=== PATIENT | male | born 1965 | race Caucasian/White ===

== ENCOUNTER 2021-05-01 16:02 | Emergency (ER) | payer OTHER ==
[~2021-05-01] VITALS: Ht 177.8 cm; Wt 108.4 kg
[~2021-05-01 16:02] MED LIST changes: -ONDA4ODT MM; -OXAYDO5 M1 PO
[2021-05-01 16:50] LABS: BASOPHILS ABSOLUTE AUTO 0.05 K/mm3 (0.00-0.23); BASOPHILS PERCENT AUTO 1 % (0-2); EOSINOPHILS ABSOLUTE AUTO 0.09 K/mm3 (0.00-0.68); EOSINOPHILS PERCENT AUTO 2 % (0-6); Hematocrit 40.1 % (37.0-53.0); Hemoglobin 13.4 g/dL (13.5-17.5); IMMATURE GRAN ABSOLUTE AUTO 0.03 K/mm3 (0.00-0.10); IMMATURE GRAN PERCENT AUTO 1 % (0-1); LYMPHOCYTES ABSOLUTE AUTO 1.01 K/mm3 (0.84-5.20); LYMPHOCYTES PERCENT AUTO 17 % (21-46); MONOCYTES ABSOLUTE AUTO 0.38 K/mm3 (0.16-1.47); MONOCYTES PERCENT AUTO 6 % (4-13); Mean Corpuscular HGB 28.3 pg (26.0-34.0); Mean Corpuscular HGB Conc 33.4 g/dL (31.5-36.5); Mean Corpuscular Volume 85 fL (80-100); NEUTROPHILS ABSOLUTE AUTO 4.47 K/mm3 (1.96-9.15); NEUTROPHILS PERCENT AUTO 74 % (41-73); Platelet Count 216 K/mm3 (150-400); RDW Coefficient Variation 13.2 % (11.7-14.2); RDW Standard Deviation 40.8 fL (35.1-46.3); Red Blood Cell Count 4.73 M/mm3 (4.30-5.90); White Blood Cell Count 6.03 K/mm3 (4.00-11.30)
[2021-05-01 17:14] LABS: Albumin, Blood 3.6 g/dL (3.4-5.0); Albumin/Globulin Ratio 1.1 (0.8-1.8); Bilirubin, Total 0.7 mg/dL (0.1-1.0); Bun/Creatinine Ratio 15.8 (12.0-20.0); Calcium, Blood 8.6 mg/dL (8.5-10.1); Creatinine, Blood 1.33 mg/dL (0.60-1.20); Globulin, Blood 3.3 g/dL (2.2-4.0); Potassium, Blood 3.7 mmol/L (3.5-5.5); Total Protein, Blood 6.9 g/dL (6.4-8.2)
[2021-05-01 18:05] LABS: Source, Urine Clean Catch
[2021-05-01 18:21] LABS: Bilirubin, Urine Neg (Neg); Blood, Urine 5+ (Neg); Glucose Qualitative, Urine Neg (Neg); Ketones, Urine 1+ (Neg); Leukocyte Esterase, Urine 1+ (Neg); Nitrite, Urine Neg (Neg); Protein, Urine 4+ (Neg); Urobilinogen, Urine NORM (Normal)
[2021-05-01 18:26] LABS: Appearance, Urine Cloudy (Clear); Color, Urine Red (P-Yellow)
[2021-05-01 18:27] LABS: Amorphous Light (0-Heavy); Bacteria Few /hpf; Red Blood Cells, Urine TNTC /hpf (0-2); Squamous Epithelial Cells Rare /hpf (Few)
[2021-05-01 23:30] LABS: Hematocrit 39.1 % (37.0-53.0); Hemoglobin 13.3 g/dL (13.5-17.5); Mean Corpuscular HGB 28.6 pg (26.0-34.0); Mean Corpuscular Volume 84 fL (80-100); Platelet Count 200 K/mm3 (150-400); RDW Coefficient Variation 13.4 % (11.7-14.2); RDW Standard Deviation 41.1 fL (35.1-46.3); Red Blood Cell Count 4.65 M/mm3 (4.30-5.90); White Blood Cell Count 6.63 K/mm3 (4.00-11.30)
[2021-05-02] MEDS ORDERED: OXAYDO5 M1 PO (02:16)
[2021-05-02] MEDS ORDERED: ONDA4ODT MM (02:16)
[2021-05-02 08:01] LABS: BASOPHILS ABSOLUTE AUTO 0.02 K/mm3 (0.00-0.23); BASOPHILS PERCENT AUTO 0 % (0-2); EOSINOPHILS ABSOLUTE AUTO 0.03 K/mm3 (0.00-0.68); EOSINOPHILS PERCENT AUTO 1 % (0-6); Hematocrit 36.9 % (37.0-53.0); Hemoglobin 11.7 g/dL (13.5-17.5); IMMATURE GRAN ABSOLUTE AUTO 0.02 K/mm3 (0.00-0.10); IMMATURE GRAN PERCENT AUTO 0 % (0-1); LYMPHOCYTES ABSOLUTE AUTO 0.88 K/mm3 (0.84-5.20); LYMPHOCYTES PERCENT AUTO 13 % (21-46); MONOCYTES ABSOLUTE AUTO 0.38 K/mm3 (0.16-1.47); MONOCYTES PERCENT AUTO 6 % (4-13); Mean Corpuscular HGB 27.5 pg (26.0-34.0); Mean Corpuscular HGB Conc 31.7 g/dL (31.5-36.5); Mean Corpuscular Volume 87 fL (80-100); Mean Platelet Volume 10.7 fL (9.1-12.4); NEUTROPHILS PERCENT AUTO 80 % (41-73); Platelet Count 167 K/mm3 (150-400); RDW Coefficient Variation 13.6 % (11.7-14.2); RDW Standard Deviation 41.9 fL (35.1-46.3); Red Blood Cell Count 4.26 M/mm3 (4.30-5.90); White Blood Cell Count 6.63 K/mm3 (4.00-11.30)
[2021-05-02 09:22] LABS: Influenza A, PCR NEGATIVE (NEGATIVE); Influenza B, PCR NEGATIVE (NEGATIVE); Resp Syncytial Virus, PCR NEGATIVE (NEGATIVE); SARS-Cov-2 (COVID-19) PCR, MMC NEGATIVE (NEGATIVE)
== END 2021-05-02 13:24 | disposition home or self-care (01) ==
LOC: ER 16:02
PROVIDERS: Emergency Medicine; Physician Assistant; Student in an Organized Health Care Education/Training Program
DX: N39.0 Urinary tract infection, site not specified (principal); R31.0 Gross hematuria; R33.9 Retention of urine, unspecified; N28.89 Other specified disorders of kidney and ureter; E27.9 Disorder of adrenal gland, unspecified; R91.1 Solitary pulmonary nodule
CPT/HCPCS: 0241U; 36415; 51700; 51702; 51798; 74177; 80053; 81001; 85025; 85027; 86850; 86900; 86901; 87086; 96374; 96376; 99284-25; A9270; J2270; Q9967

== ENCOUNTER → 2021-05-01 | Outpatient (CLI) | payer OTHER ==
[~2021-05-01] MED LIST: ONDA4ODT MM; OXAYDO5 M1 PO; OXYACE5T PO
== END | disposition home or self-care (01) ==
LOC: LAB SHORT 11:15
DX: R31.9 Hematuria, unspecified (principal)
CPT/HCPCS: 87086

== ENCOUNTER → 2021-05-17 | Outpatient (CLI) | payer OTHER ==
[~2021-05-17] MED LIST changes: +ONDA4ODT MM; +OXAYDO5 M1 PO
[2021-05-17 11:15] LABS: Source, Urine Clean Catch
[2021-05-17 12:50] LABS: Appearance, Urine Clear (Clear); Bilirubin, Urine Neg (Neg); Blood, Urine 5+ (Neg); Color, Urine Yellow (P-Yellow); Glucose Qualitative, Urine Neg (Neg); Ketones, Urine Neg (Neg); Leukocyte Esterase, Urine Neg (Neg); Nitrite, Urine Neg (Neg); Protein, Urine 1+ (Neg); Urobilinogen, Urine NORM (Normal)
[2021-05-17 12:58] LABS: Bacteria Few /hpf; Squamous Epithelial Cells Few /hpf (Few); White Blood Cells, Urine 0-2 /hpf (0-5)
[2021-05-17 12:59] LABS: Mucus Light (0-Heavy)
== END | disposition home or self-care (01) ==
LOC: LAB 11:14 → LAB SHORT 11:14
PROVIDERS: Urology
DX: N39.0 Urinary tract infection, site not specified (principal)
CPT/HCPCS: 81001; 87086

== ENCOUNTER 2021-06-17 11:24 | Inpatient (IN) | payer OTHER ==
[~2021-06-17] VITALS: Ht 177.8 cm; Wt 100.8 kg
[2021-06-17 12:07] LABS: BASOPHILS ABSOLUTE AUTO 0.04 K/mm3 (0.00-0.23); BASOPHILS PERCENT AUTO 1 % (0-2); EOSINOPHILS ABSOLUTE AUTO 0.02 K/mm3 (0.00-0.68); EOSINOPHILS PERCENT AUTO 0 % (0-6); Hematocrit 34.1 % (37.0-53.0); Hemoglobin 10.9 g/dL (13.5-17.5); IMMATURE GRAN ABSOLUTE AUTO 0.05 K/mm3 (0.00-0.10); IMMATURE GRAN PERCENT AUTO 1 % (0-1); LYMPHOCYTES ABSOLUTE AUTO 1.21 K/mm3 (0.84-5.20); LYMPHOCYTES PERCENT AUTO 14 % (21-46); MONOCYTES ABSOLUTE AUTO 0.57 K/mm3 (0.16-1.47); MONOCYTES PERCENT AUTO 7 % (4-13); Mean Corpuscular HGB 26.3 pg (26.0-34.0); Mean Corpuscular Volume 82 fL (80-100); Mean Platelet Volume 10.6 fL (9.1-12.4); NEUTROPHILS ABSOLUTE AUTO 6.51 K/mm3 (1.96-9.15); NEUTROPHILS PERCENT AUTO 78 % (41-73); Platelet Count 260 K/mm3 (150-400); RDW Coefficient Variation 14.2 % (11.7-14.2); RDW Standard Deviation 41.9 fL (35.1-46.3); Red Blood Cell Count 4.15 M/mm3 (4.30-5.90)
[2021-06-17 12:33] LABS: Albumin, Blood 2.7 g/dL (3.4-5.0); Albumin/Globulin Ratio 0.6 (0.8-1.8); Bilirubin, Total 1.6 mg/dL (0.1-1.0); Calcium, Blood 8.7 mg/dL (8.5-10.1); Creatinine, Blood 1.31 mg/dL (0.60-1.20); Globulin, Blood 4.2 g/dL (2.2-4.0); Potassium, Blood 3.6 mmol/L (3.5-5.5); Total Protein, Blood 6.9 g/dL (6.4-8.2)
[2021-06-17] MEDS ORDERED: INLYTA5 MG PO (12:34)
[2021-06-17] MEDS ORDERED: AMLODIPINE BESY10 MG PO (12:34)
[2021-06-17] MEDS ORDERED: Ondansetron Odt8 MG SL (12:35)
[2021-06-17 12:50] LABS: Base Excess Venous 3.2 mmol/L; Bicarbonate Venous 26.5 mmol/L (24.0-30.0); PO2 Venous 42.4 mmHg (38-42); pH Blood Venous 7.42 (7.34-7.37)
[2021-06-17 13:00] LABS: International Normalized Ratio 1.1; Prothrombin Time Results 11.5 Sec (9.7-11.5)
[2021-06-17 14:55] LABS: Influenza A, PCR NEGATIVE (NEGATIVE); Influenza B, PCR NEGATIVE (NEGATIVE); Resp Syncytial Virus, PCR NEGATIVE (NEGATIVE); SARS-Cov-2 (COVID-19) PCR, MMC NEGATIVE (NEGATIVE)
[2021-06-17] MEDS ORDERED: BENZ100A PO (16:59)
[2021-06-17] MEDS ORDERED: KEYTRUDA100 MG/41 IV (17:01)
--- NOTE | 2021-06-17 17:48 | NUR ---
THIS REGIONAL MARKETING DIRECTOR HAS REVIEWED ASSESSMENTS AND NOTES BY DANIE COLE AND AGREE WITH THEM.
--- NOTE | 2021-06-17 18:09 | NUR ---
SHIFT SUMMARY PT ARRIVED TO MED FLOOR. PT HACKING UP THINNING BLOODY SPUTUM. PT REPORTS NO PAIN BUT STATES THROAT IS BECOMING SORE. PT ABLE TO AMBULATE TO RESTROOM IF NEEDED. PT USING BEDSIDE URINAL NEEDED. OF PT AT BEDSIDE. PT IN BED WITH CALL LIGHT BY SIDE.
--- NOTE | 2021-06-18 04:48 | NUR ---
SHIFT SUMMARY: PATIENT CONTINUES TO BE HYPERTENSIVE BUT ASYMPTOMATIC. LOPRESSOR WAS GIVEN AT HS WITH LITTLE EFFECT. COUGH WITH BLOOD TINGED SPUTUM IS PERSISTANT. COUGH SYRUP WAS GIVEN PER APR AND DR GRAVES WAS NOTIFIED . ORDERS FOR TESSELON PEARLS 200MG TID WAS OBTAINED AND GIVEN WITH FAIR EFFECT. PATIENT HAD A 5 BEAT RUN OF PVC'S VSS, NO CHANGES ON TELI AND NO REPORTS OF CHEST PAIN. TELI REMIANS IN PLACE.
[2021-06-18 05:07] LABS: BASOPHILS ABSOLUTE AUTO 0.05 K/mm3 (0.00-0.23); BASOPHILS PERCENT AUTO 1 % (0-2); EOSINOPHILS ABSOLUTE AUTO 0.04 K/mm3 (0.00-0.68); EOSINOPHILS PERCENT AUTO 1 % (0-6); Hematocrit 35.1 % (37.0-53.0); IMMATURE GRAN ABSOLUTE AUTO 0.04 K/mm3 (0.00-0.10); IMMATURE GRAN PERCENT AUTO 1 % (0-1); LYMPHOCYTES ABSOLUTE AUTO 1.05 K/mm3 (0.84-5.20); LYMPHOCYTES PERCENT AUTO 14 % (21-46); MONOCYTES ABSOLUTE AUTO 0.59 K/mm3 (0.16-1.47); MONOCYTES PERCENT AUTO 8 % (4-13); Mean Corpuscular HGB 25.9 pg (26.0-34.0); Mean Corpuscular HGB Conc 31.3 g/dL (31.5-36.5); Mean Corpuscular Volume 83 fL (80-100); Mean Platelet Volume 10.4 fL (9.1-12.4); NEUTROPHILS ABSOLUTE AUTO 6.01 K/mm3 (1.96-9.15); NEUTROPHILS PERCENT AUTO 77 % (41-73); Platelet Count 271 K/mm3 (150-400); RDW Coefficient Variation 14.1 % (11.7-14.2); RDW Standard Deviation 42.5 fL (35.1-46.3); Red Blood Cell Count 4.25 M/mm3 (4.30-5.90); White Blood Cell Count 7.78 K/mm3 (4.00-11.30)
[2021-06-18 05:51] LABS: Bun/Creatinine Ratio 16.4 (12.0-20.0); Calcium, Blood 8.5 mg/dL (8.5-10.1); Creatinine, Blood 1.46 mg/dL (0.60-1.20); Potassium, Blood 3.6 mmol/L (3.5-5.5)
--- NOTE | 2021-06-18 17:16 | NUR ---
SHIFT SUMMARY PT AOX4. PT WAS ADMITTED WITH RESPIRATORY FAILURE SECONDARY TO STAGE IV RENAL CANCER. PT REQUIRES ASSISTANCE TO THE COMMODE. PT PREFERS TO SIT UP BECAUSE IT HELPS WITH BREATHING. PT IS USING A HIGH FLOW HUMIDIFIED, 6L. PT REPORTED TO HAVE BEEN COUGHIN UP BLOODY SPUTUM, NONE NOTED THIS SHIFT. PT HAD FAMILY VISIT THROUGHOUT THE DAY. PT HAS BEEN IN A PLEASANT MOOD. PT FOLLOWS COMMANDS. PT TAKES MEDS WHOLE WITH WATER. PT HAD A 6 BEAT RUN OF VTACH THIS SHIFT AT 17:22. PT WAS ASYMPTOMATIC. PT SKIN CDI. THE PLAN IS FOR HIM TO GO HOME WITH HIS GF WHO IS CURRENTLY PRESENT WITH HIM IN THE ROOM NOW. WILL CONTINUE TO MONITOR AND ASSESS UNTIL NOC SHIFT ARRIVES.
--- NOTE | 2021-06-18 17:58 | NUR ---
I HAVE READ AND REVIEWED THE AUTOMOBILE SALESMAN DOCUMENTATION AND AM IN AGGREEMENT WITH HER CHARTING.
--- NOTE | 2021-06-19 04:45 | NUR ---
SHIFT SUMMARY: PATIENT HAS SLEPT WELL THIS SHIFT. COUGH HAS IMPROVED WITH ONE DOSE OF COUGH SYRUP. VSS AND NO REPORTS OF PAIN. MAINTAINS SATS 92-93 ON 6L HIGH FLOW 02. NO ACUTE CHANGES.
--- NOTE | 2021-06-19 18:11 | NUR ---
SHIFT SUMMARY PT HAS BEEN PLEASANT ALL DAY, HE HAS BEEN RECIEVING MANY VISITORS. HIS BREATHING EFFORT HAS DECREASED AND HE SAID HE SLEPT WELL LAST NIGHT. HE TOOK A SHOWER WITH THE ROLLING SHOWER CHAIR TODAY. HE HAS ALSO BENE GIVEN A CUP FOR A SPUTUM COLLECTION, HE WAS TOLD TO LET US KNOW WHEN HE CAN PROVIDE ONE. THE PT IS AOX4. HIS APPETITE HAS IMPROVED, EATING MOST OF HIS MEALS TODAY. HE DENIED ANY PAIN TODAY AND DID NOT REQUEST ANY PAIN MEDICATIONS. WILL CONTINUE TO MONITOR AND ASSESS UNTIL NOC SHIFT ARRIVES.
--- NOTE | 2021-06-19 18:30 | NUR ---
THIS RN REVIEWED THE DOCUMENTTON BY ASCENCION ALSTON. I AM IN AGREEMENT WITH HER CHARTING.
--- NOTE | 2021-06-20 03:47 | NUR ---
SUMMARY: PT A/OX4, CALLS APPROPRIATELY TO SPECIFY NEEDS AND IS PLEASANT AND COOPERATIVE W/CARE. HE REMAINS ON 6L HF O2 BUT REPORTS FEELING FAR LESS SOB W/EXERTION AND NONE AT REST. HACKING COUGH PERSISTS, SPUTUM SPECIMEN OBTAINED AND SENT, AWAITING RESULTS AND COUGH MEDICINE RECIEVED PRN FOR GOOD EFFECT. HE'S NSR W/PAC'S AND PVC'S ON TELEMETRY AT 90'S BPM. NO ACUTE CHANGES, VSS AND AFEBRILE. WCTM AND REPORT TO DAY RN.
[2021-06-20 05:54] LABS: Bun/Creatinine Ratio 20.6 (12.0-20.0); Calcium, Blood 8.6 mg/dL (8.5-10.1); Creatinine, Blood 1.31 mg/dL (0.60-1.20); Potassium, Blood 3.1 mmol/L (3.5-5.5)
--- NOTE | 2021-06-20 08:46 | NUR ---
DR BLACK NOTIFIED OF RUN OF V-TACH X2 THIS SHIFT. NO NEW ORDERS AT THIS TIME.
--- NOTE | 2021-06-20 17:17 | NUR ---
SHIFT SUMMARY PT AXO, PLEASANT AND COOPERATIVE WITH CARE. COMPLAINS OF SOB WITH EXERTION AND WITH TALKING, THOUGH IMPROVING. HACKING PRODUCTIVE COUGH ONLY OBSERVED WHEN PT IS ENGAGED IN CONVERSATION. 96-98% ON 6L VIA HFNC. PT DENIES PAIN AND N/V. PT HAS HAD 2 EPISODES OF RUNS OF V-TACH, DR BLACK NOTIFIED, NO NEW ORDERS . UP TO CHAIR INDEPENDENTLY, ENCOURAGED TO CALL WHEN OOB. BED IN LOW POSITION, CALL LIGHT WITHIN REACH. PT INQUIRED ABOUT HIS HOME MEDICATION IN[place]TA, THIS NURSE CALLED DR BLACK AND GOT IT REORDERED. MED VERIFIED BY PHARMACY AND IS CURRENTLY LOCKED IN DRAWER.
[2021-06-21 05:37] LABS: Hematocrit 35.4 % (37.0-53.0); Mean Corpuscular HGB 25.5 pg (26.0-34.0); Mean Corpuscular HGB Conc 31.1 g/dL (31.5-36.5); Mean Corpuscular Volume 82 fL (80-100); Mean Platelet Volume 10.5 fL (9.1-12.4); Platelet Count 258 K/mm3 (150-400); RDW Coefficient Variation 13.9 % (11.7-14.2); RDW Standard Deviation 41.2 fL (35.1-46.3); Red Blood Cell Count 4.31 M/mm3 (4.30-5.90); White Blood Cell Count 6.93 K/mm3 (4.00-11.30)
--- NOTE | 2021-06-21 05:50 | NUR ---
SHIFT SUMMARY NOC: ABLE TO TITRATE O2 FROM 6L TO 4L DURING NIGHT. PT SATTING 95-97% NO RESPIRATORY DISTRESS NOTED DURING SHIFT. NO COMPLAINTS OF SOB OR PAIN.
[2021-06-21 06:03] LABS: Albumin, Blood 2.4 g/dL (3.4-5.0); Albumin/Globulin Ratio 0.6 (0.8-1.8); Bilirubin, Total 0.7 mg/dL (0.1-1.0); Calcium, Blood 8.6 mg/dL (8.5-10.1); Creatinine, Blood 1.33 mg/dL (0.60-1.20); Globulin, Blood 4.2 g/dL (2.2-4.0); Potassium, Blood 3.7 mmol/L (3.5-5.5); Total Protein, Blood 6.6 g/dL (6.4-8.2)
--- NOTE | 2021-06-21 06:20 | NUR ---
TELE RHYTHM PER TELE CREDIT CARD CLERK AROUND 0600 PT HAD 7 B RUN V. TACH & THEN CONVERTED TO SINUS TACH HR 100. PT ASYMPTOMATIC, RESTING IN BED, DENIES ANY DISCOMFORT. SUPERVISOR COOK HOUSEDANIE Main INFORMED.
--- NOTE | 2021-06-21 12:08 | NUR ---
GIRLFRIEND AT BEDSIDE, COOPERATIVE TO CARE, WAITING FOR THE GEAR CODING MACHINE OPERATOR DR ALCOCER TO ROUND, INDEPENDANT IN ROOM, REFUSED LAXATIVE AND STOOL SOGTNER TODAY
[2021-06-21] MEDS ORDERED: METO25 PO (16:53)
[2021-06-21] MEDS ORDERED: CEFD300 PO (16:53)
[2021-06-21] MEDS ORDERED: ALBU90OI INH (16:53)
[2021-06-21] MEDS ORDERED: FURO20 PO (16:54)
[2021-06-21] MEDS ORDERED: SPIR25 PO (16:54)
== END 2021-06-21 18:21 | disposition home or self-care (01) | DRG 193 ==
LOC: ER 11:24 → MEDS 16:30
PROVIDERS: Internal Medicine; Physician Assistant; ADMIT Internal Medicine
DX: J18.9 Pneumonia, unspecified organism (principal); I50.21 Acute systolic (congestive) heart failure; J96.01 Acute respiratory failure with hypoxia; Z66 Do not resuscitate; I13.0 Hypertensive heart and chronic kidney disease with heart failure and stage 1 through stage 4 chronic kidney disease, or unspecified chronic kidney disease; C64.2 Malignant neoplasm of left kidney, except renal pelvis; C78.02 Secondary malignant neoplasm of left lung; C78.01 Secondary malignant neoplasm of right lung; Z20.822 Contact with and (suspected) exposure to COVID-19; D63.0 Anemia in neoplastic disease; E87.6 Hypokalemia; Z79.899 Other long term (current) drug therapy
CPT/HCPCS: 0241U; 36415; 71260; 80048; 80053; 82803; 83605; 83735; 83880; 84484; 85025; 85027; 85610; 85730; 87040; 87070; 87205; 92610; 93005; 93010; 93306; 94640; 94664; 94760; 96361; 96365; 96366; 96375; 99285-25; A9270; C9113; J0295; J0456; J0696; J1940; J7030; J7050; J7060; Q9967

== ENCOUNTER 2021-07-22 09:40 | Emergency (ER) | payer OTHER ==
[~2021-07-22] VITALS: Ht 177.8 cm; Wt 93.0 kg
[~2021-07-22 09:40] MED LIST changes: +ALBU90OI INH; +AMLODIPINE BESY10 MG PO; +BENZ100A PO; +CEFD300 PO; +FURO20 PO; +INLYTA5 MG PO; +KEYTRUDA100 MG/41 IV; +METO25 PO; +Ondansetron Odt8 MG SL; +SPIR25 PO
[2021-07-22 11:19] LABS: Albumin, Blood 3.3 g/dL (3.4-5.0); Albumin/Globulin Ratio 0.8 (0.8-1.8); Bilirubin, Total 1.9 mg/dL (0.1-1.0); Bun/Creatinine Ratio 12.4 (12.0-20.0); Calcium, Blood 9.6 mg/dL (8.5-10.1); Creatinine, Blood 1.61 mg/dL (0.60-1.20); Globulin, Blood 3.9 g/dL (2.2-4.0); Potassium, Blood 4.2 mmol/L (3.5-5.5); Total Protein, Blood 7.2 g/dL (6.4-8.2)
[2021-07-22 12:07] LABS: Influenza A, PCR NEGATIVE (NEGATIVE); Influenza B, PCR NEGATIVE (NEGATIVE); Resp Syncytial Virus, PCR NEGATIVE (NEGATIVE); SARS-Cov-2 (COVID-19) PCR, MMC NEGATIVE (NEGATIVE)
[2021-07-22 12:29] LABS: MONOCYTES ABSOLUTE AUTO 0.54 K/mm3 (0.16-1.47); Mean Corpuscular HGB 25.3 pg (26.0-34.0); NRBC ABSOLUTE 0.02 K/mm3 (0.00-0.02); NRBC Auto 0.2 /100 WBC (0.0-0.2)
[2021-07-22 12:38] LABS: BASOPHILS ABSOLUTE AUTO 0.07 K/mm3 (0.00-0.23); BASOPHILS PERCENT AUTO 1 % (0-2); EOSINOPHILS ABSOLUTE AUTO 0.06 K/mm3 (0.00-0.68); EOSINOPHILS PERCENT AUTO 1 % (0-6); Hematocrit 38.7 % (37.0-53.0); Hemoglobin 12.2 g/dL (13.5-17.5); IMMATURE GRAN ABSOLUTE AUTO 0.05 K/mm3 (0.00-0.10); IMMATURE GRAN PERCENT AUTO 1 % (0-1); LYMPHOCYTES ABSOLUTE AUTO 1.37 K/mm3 (0.84-5.20); LYMPHOCYTES PERCENT AUTO 16 % (21-46); MONOCYTES PERCENT AUTO 6 % (4-13); Mean Corpuscular HGB Conc 31.5 g/dL (31.5-36.5); Mean Corpuscular Volume 80 fL (80-100); NEUTROPHILS ABSOLUTE AUTO 6.59 K/mm3 (1.96-9.15); NEUTROPHILS PERCENT AUTO 76 % (41-73); RDW Coefficient Variation 15.6 % (11.7-14.2); Red Blood Cell Count 4.82 M/mm3 (4.30-5.90); White Blood Cell Count 8.68 K/mm3 (4.00-11.30)
[2021-07-22 13:21] LABS: Platelet Count 198 K/mm3 (150-400)
[2021-07-22] MEDS ORDERED: AMOCLA875 PO (13:58)
[2021-07-22] MEDS ORDERED: LASIX20 M2 PO (13:58)
[2021-07-22] MEDS ORDERED: POTCHL20ER PO (13:58)
== END 2021-07-22 14:25 | disposition home or self-care (01) ==
LOC: ER 09:40
PROVIDERS: Emergency Medicine
DX: I13.0 Hypertensive heart and chronic kidney disease with heart failure and stage 1 through stage 4 chronic kidney disease, or unspecified chronic kidney disease (principal); I50.9 Heart failure, unspecified; J18.9 Pneumonia, unspecified organism; N18.9 Chronic kidney disease, unspecified; Z20.822 Contact with and (suspected) exposure to COVID-19
CPT/HCPCS: 0241U; 36415; 71046; 80053; 83880; 84484; 85025; 93005; 93010; A9270; J1940

== ENCOUNTER 2021-07-25 21:43 | Inpatient (IN) | payer OTHER ==
[~2021-07-25] VITALS: Ht 177.8 cm; Wt 85.7 kg
[~2021-07-25 21:43] MED LIST changes: +AMOCLA875 PO; +LASIX20 M2 PO; +POTCHL20ER PO
[2021-07-25 22:53] LABS: BASOPHILS ABSOLUTE AUTO 0.08 K/mm3 (0.00-0.23); BASOPHILS PERCENT AUTO 1 % (0-2); EOSINOPHILS ABSOLUTE AUTO 0.04 K/mm3 (0.00-0.68); EOSINOPHILS PERCENT AUTO 0 % (0-6); Hematocrit 40.2 % (37.0-53.0); Hemoglobin 12.8 g/dL (13.5-17.5); IMMATURE GRAN ABSOLUTE AUTO 0.03 K/mm3 (0.00-0.10); IMMATURE GRAN PERCENT AUTO 0 % (0-1); LYMPHOCYTES ABSOLUTE AUTO 1.76 K/mm3 (0.84-5.20); LYMPHOCYTES PERCENT AUTO 19 % (21-46); MONOCYTES ABSOLUTE AUTO 0.81 K/mm3 (0.16-1.47); MONOCYTES PERCENT AUTO 9 % (4-13); Mean Corpuscular HGB 25.4 pg (26.0-34.0); Mean Corpuscular HGB Conc 31.8 g/dL (31.5-36.5); Mean Corpuscular Volume 80 fL (80-100); Mean Platelet Volume 10.5 fL (9.1-12.4); NEUTROPHILS PERCENT AUTO 71 % (41-73); NRBC ABSOLUTE 0.02 K/mm3 (0.00-0.02); NRBC Auto 0.2 /100 WBC (0.0-0.2); Platelet Count 329 K/mm3 (150-400); RDW Coefficient Variation 16.1 % (11.7-14.2); RDW Standard Deviation 45.1 fL (35.1-46.3); Red Blood Cell Count 5.03 M/mm3 (4.30-5.90); White Blood Cell Count 9.42 K/mm3 (4.00-11.30)
[2021-07-25 23:11] LABS: Albumin, Blood 3.1 g/dL (3.4-5.0); Albumin/Globulin Ratio 0.8 (0.8-1.8); Bilirubin, Total 1.9 mg/dL (0.1-1.0); Bun/Creatinine Ratio 18.9 (12.0-20.0); Creatinine, Blood 1.69 mg/dL (0.60-1.20); Potassium, Blood 4.2 mmol/L (3.5-5.5); Total Protein, Blood 7.1 g/dL (6.4-8.2)
[2021-07-26 06:35] LABS: Source, Urine Clean Catch
[2021-07-26 06:41] LABS: Bilirubin, Urine Neg (Neg); Blood, Urine Neg (Neg); Glucose Qualitative, Urine Neg (Neg); Ketones, Urine 2+ (Neg); Leukocyte Esterase, Urine Neg (Neg); Nitrite, Urine Neg (Neg); Protein, Urine 2+ (Neg); Specific Gravity, Urine 1.015 (1.003-1.022); Urobilinogen, Urine NORM (Normal)
--- NOTE | 2021-07-26 06:50 | NUR ---
CARE ASSUMPTION: PATIENT ARRIVED BY GURNEY AND SCOOTED SELF TO PCU BED. PATIENT DEMANDED COUGH SYRUP, URINAL, AND "SOMETHING FOR HEADACHE." URINALYSIS COLLECTED. PATIENT FELL ASLEEP WHILE TALKING TO STAFF. CONSENT FORMS SIGNED AND MEDICATED PER EMAR. PATIENT HAS CO2 MONITORING IN PLACE D/T POOR RESPONSE TO ATIVAN IN ED THAT HE IS STILL RECOVERING FROM. PATIENT IS VERY APNEIC BUT RECOVERS QUICKLY W/O INTERVENTION. WILL REPORT TO ONCOMING RN.
[2021-07-26 06:53] LABS: Appearance, Urine Clear (Clear); Color, Urine Yellow (P-Yellow); White Blood Cells, Urine 0-2 /hpf (0-5)
[2021-07-26 06:54] LABS: Bacteria Rare /hpf; Red Blood Cells, Urine 0-2 /hpf (0-2); Squamous Epithelial Cells Not Seen /hpf (Few)
[2021-07-26 07:26] LABS: BASOPHILS ABSOLUTE AUTO 0.07 K/mm3 (0.00-0.23); BASOPHILS PERCENT AUTO 1 % (0-2); EOSINOPHILS ABSOLUTE AUTO 0.03 K/mm3 (0.00-0.68); EOSINOPHILS PERCENT AUTO 0 % (0-6); Hematocrit 40.5 % (37.0-53.0); Hemoglobin 12.5 g/dL (13.5-17.5); IMMATURE GRAN ABSOLUTE AUTO 0.12 K/mm3 (0.00-0.10); IMMATURE GRAN PERCENT AUTO 1 % (0-1); LYMPHOCYTES ABSOLUTE AUTO 1.18 K/mm3 (0.84-5.20); LYMPHOCYTES PERCENT AUTO 13 % (21-46); MONOCYTES ABSOLUTE AUTO 0.68 K/mm3 (0.16-1.47); MONOCYTES PERCENT AUTO 8 % (4-13); Mean Corpuscular HGB 25.2 pg (26.0-34.0); Mean Corpuscular HGB Conc 30.9 g/dL (31.5-36.5); Mean Corpuscular Volume 82 fL (80-100); Mean Platelet Volume 10.9 fL (9.1-12.4); NEUTROPHILS ABSOLUTE AUTO 6.82 K/mm3 (1.96-9.15); NEUTROPHILS PERCENT AUTO 77 % (41-73); NRBC ABSOLUTE 0.04 K/mm3 (0.00-0.02); NRBC Auto 0.4 /100 WBC (0.0-0.2); Platelet Count 278 K/mm3 (150-400); RDW Coefficient Variation 16.3 % (11.7-14.2); RDW Standard Deviation 46.7 fL (35.1-46.3); Red Blood Cell Count 4.97 M/mm3 (4.30-5.90)
[2021-07-26 07:48] LABS: Albumin, Blood 3.1 g/dL (3.4-5.0); Albumin/Globulin Ratio 0.8 (0.8-1.8); Bilirubin, Total 1.8 mg/dL (0.1-1.0); Bun/Creatinine Ratio 18.1 (12.0-20.0); Calcium, Blood 9.1 mg/dL (8.5-10.1); Creatinine, Blood 1.55 mg/dL (0.60-1.20); Globulin, Blood 3.8 g/dL (2.2-4.0); Potassium, Blood 4.1 mmol/L (3.5-5.5); Total Protein, Blood 6.9 g/dL (6.4-8.2)
--- NOTE | 2021-07-26 17:53 | NUR ---
PT SUMMARY: PT TRANSITIONED TO MEDICAL STATUS WITH TELE. PT HAS BEEN ALERT AND ORIENTED X3, ABLE TO MAKE NEEDS KNOWN, MOSTLY LETHARGIC AND KEEPS FALLING ASLEEP DURING CONVERSATION, ATE MEALS WITH NO ISSUES, HAS DRY COUGH WAS GIVEN TESSALON PEARLS FOR THE SHIFT PT REPORTS INEFFECTIVE AND REQUESTED COUGH SYRUP, COUGH SYRUP ORDERED AND WAS GIVEN, SPUTUM SAMPLE SENT TO LAB. VITALS HRR SR 70-90'S, HAS TWO EPISODES OF ASYMPTOMATIC 10 BEATS OF VTACH PROVIDER AWARE. PT DENIES ANY CHEST PAIN/PRESSURE. BP SYSTOLIC STABLE AT 120-130'S, SATS ABOVE 90% ON 3L OF O2 PT DESATS TO LOW 80'S WHEN SLEEPING WITH APNEIC EPISODES CALLED AND GOT ORDER FOR CPAP PT UNABLE TO TOLERATE FOR LONGER PERIOD OF TIME, WAS ENCOURAGED TO USE TONIGHT AT BEDTIME PT AGREEABLE. PT HAS BEEN GETTING UP WALKING TO THE BATHROOM STANDBY ASSISTS REPORTS BM AND UNMEASURED VOIDS. FAMILY CAME IN TO VISIT WAS GIVEN UPDATE REGARDING PT'S STATUS. PT HAS BEEN UP SITTING UP IN THE RECLINER PER PT'S REQUESTS, ABLE TO MAKE NEEDS KNOWN, NO OTHER ISSUES REPORTED, WILL REPORT TO ONCOMING SHIFT.
[2021-07-27] MEDS ORDERED: AMLODIPINE BESY10 MG PO (02:14)
[2021-07-27] MEDS ORDERED: PROMETHAZINE-C473 ML PO (02:15)
[2021-07-27 04:11] LABS: Hematocrit 40.7 % (37.0-53.0); Hemoglobin 12.5 g/dL (13.5-17.5); Mean Corpuscular HGB 24.8 pg (26.0-34.0); Mean Corpuscular HGB Conc 30.7 g/dL (31.5-36.5); Mean Corpuscular Volume 81 fL (80-100); Mean Platelet Volume 10.7 fL (9.1-12.4); NRBC ABSOLUTE 0.03 K/mm3 (0.00-0.02); NRBC Auto 0.3 /100 WBC (0.0-0.2); Platelet Count 278 K/mm3 (150-400); RDW Coefficient Variation 16.3 % (11.7-14.2); RDW Standard Deviation 45.8 fL (35.1-46.3); Red Blood Cell Count 5.05 M/mm3 (4.30-5.90); White Blood Cell Count 9.64 K/mm3 (4.00-11.30)
[2021-07-27 04:31] LABS: Vancomycin, Trough 13.4 ug/mL (5.0-10.0)
[2021-07-27 04:40] LABS: Bun/Creatinine Ratio 19.5 (12.0-20.0); Creatinine, Blood 1.74 mg/dL (0.60-1.20); Potassium, Blood 4.6 mmol/L (3.5-5.5)
--- NOTE | 2021-07-27 05:25 | NUR ---
SHIFT SUMMARY: PATIENT REFUSED CPAP SAID THE MASK MAKES HIM TO ANXIOUS. PATIENT ANXIOUS AT BASELINE, RESTLESS, DIFFICULTY FALLING ASLEEP DUE TO CONTINOUS BIOX BEEPING. RT CALLED MACHINE SEEMS TO BE MALFUNCTIONING READING COMES IN AND OUT SAT > 96% ON 2L. PATIENT HAS DYSPENA AT REST, CRACKELS, AND PRODUCTIVE COUGH. TELE = NSR WITH INTERMITTENT BURST OF VTACH WHEN COUGHING. PRN COUGH MEDICATION PROVIDED PER EMAR.
--- NOTE | 2021-07-27 18:29 | NUR ---
SUMM- PT INDEPENDANT IN ROOM. USES URINAL. PT HAS FREQ STRONG COUGH. STATES COUGHING UP GREEN SPUTUM- TELE SR 80'S. TILE SETTER SUPERVISOR CALLED THIS AM APPROX 0900, STATED PT HAD 20 BEAT RUN V TACH, ASYMPTOMATIC SELF TERMINATING. PT HAD COUGHING SPELLS T/O THE DAY. MEDICATED WITH ROBITUSSIN AND OXY WITCH SEEMED HELPFUL. PT DOSES OFF DURING THE DAY SITTING UP IN BED. HIS SON STATES HIS DAD IS AFRAID TO GO TO SLEEP THAT HE WOULD STOP BREATHING. PLAN FOR PT TO GO HOME TOMORROW.
--- NOTE | 2021-07-28 05:03 | NUR ---
SHIFT SUMMARY: NO SIGNIFICANT EVENTS ON NOC. PATIENT REMAINS ON 2-3L NC, CONTIMIOUS BIOX SHOWS SAT > 94% OCCASSIONALLY DIPS DOWN INTO LOW 80S WHEN ENTEREING ROOM PATIENT IS FOUND TO BE HAVING APENIC EPISODES HE BEGINS BREATHING AND SATURATION IMMEDIATLEY RECOVERS. COMPLIANT WITH POC/MEDICATION ADMINISTRATIONS. SEE SHIFT ASSESSMENT FOR MORE DETAILS.
[2021-07-28 05:04] LABS: Hematocrit 40.6 % (37.0-53.0); Hemoglobin 12.3 g/dL (13.5-17.5); Mean Corpuscular HGB 24.8 pg (26.0-34.0); Mean Corpuscular HGB Conc 30.3 g/dL (31.5-36.5); Mean Corpuscular Volume 82 fL (80-100); Mean Platelet Volume 11.4 fL (9.1-12.4); Platelet Count 248 K/mm3 (150-400); RDW Coefficient Variation 16.4 % (11.7-14.2); RDW Standard Deviation 48.5 fL (35.1-46.3); Red Blood Cell Count 4.96 M/mm3 (4.30-5.90); White Blood Cell Count 8.59 K/mm3 (4.00-11.30)
[2021-07-28 05:26] LABS: Creatinine, Blood 1.83 mg/dL (0.60-1.20); Potassium, Blood 4.5 mmol/L (3.5-5.5)
--- NOTE | 2021-07-28 11:56 | NUR ---
PT HERE FOR ACUTE RESP FAILURE. COUGHING NOTED, PRODUCING MUCUS. LUNGS ARE CLEAR, BUT DIMINISHED TO BASES. TELE REPORT SINUS IN THE 70'S. TELE REPORTS NO RUNS OF VTACH THIS SHIFT. OXYGEN AT 4LPM. 20G IV IN RIGHT HAND FLUSHES WELL. PT IS ANXIOUS TO GO HOME.
[2021-07-28] MEDS ORDERED: CEFD300 PO (12:23)
--- NOTE | 2021-07-28 13:09 | NUR ---
discharge note: pt was discharged, with all belongings, via WC to private vehicle in care of partner Marie. Perscription for cough syrup given to spouse. All discharge education and paperwork completed and reviewed with pt and partner Marie. No further questions. IV from R hand removed, tolerated procedure well.
== END 2021-07-28 12:56 | disposition home or self-care (01) | DRG 871 ==
LOC: ER 21:43 → PCU 07-26 04:49 → MEDS 07-26 04:49 → PCU 07-26 06:15 → MEDS 07-26 18:58
PROVIDERS: Family Medicine; Internal Medicine; Student in an Organized Health Care Education/Training Program; ADMIT Internal Medicine
DX: A41.9 Sepsis, unspecified organism (principal); J18.9 Pneumonia, unspecified organism; J96.01 Acute respiratory failure with hypoxia; I50.43 Acute on chronic combined systolic (congestive) and diastolic (congestive) heart failure; I13.0 Hypertensive heart and chronic kidney disease with heart failure and stage 1 through stage 4 chronic kidney disease, or unspecified chronic kidney disease; C64.2 Malignant neoplasm of left kidney, except renal pelvis; C78.02 Secondary malignant neoplasm of left lung; C78.01 Secondary malignant neoplasm of right lung; C79.72 Secondary malignant neoplasm of left adrenal gland; C79.71 Secondary malignant neoplasm of right adrenal gland; N17.9 Acute kidney failure, unspecified; N18.30 Chronic kidney disease, stage 3 unspecified; F41.9 Anxiety disorder, unspecified; Z51.5 Encounter for palliative care; Z92.21 Personal history of antineoplastic chemotherapy; Z98.890 Other specified postprocedural states; Z79.899 Other long term (current) drug therapy; Z79.51 Long term (current) use of inhaled steroids; Z79.2 Long term (current) use of antibiotics; Z79.01 Long term (current) use of anticoagulants; Z79.891 Long term (current) use of opiate analgesic
CPT/HCPCS: 36415; 71046; 71260; 80048; 80053; 80202; 81001; 83605; 83690; 83880; 84145; 84484; 85025; 85027; 85379; 87040; 87070; 87205; 93005; 93010; 94660; 94760; 94762; 96374; 96375; 99285-25; A9270; J0696; J1650; J2060; J2543; J3370; J7030; J7060; Q9967

== ENCOUNTER 2022-07-26 12:39 | Emergency (ER) | payer OTHER ==
[~2022-07-26] VITALS: Ht 167.6 cm; Wt 81.7 kg
[~2022-07-26 12:39] MED LIST changes: +PROMETHAZINE-C473 ML PO
[2022-07-26 13:05] VITALS: BP 142/85
[2022-07-26 13:22] LABS: BASOPHILS ABSOLUTE AUTO 0.02 K/mm3 (0.00-0.23); BASOPHILS PERCENT AUTO 0 % (0-2); EOSINOPHILS ABSOLUTE AUTO 0.05 K/mm3 (0.00-0.68); EOSINOPHILS PERCENT AUTO 1 % (0-6); Hematocrit 39.9 % (37.0-53.0); Hemoglobin 13.3 g/dL (13.5-17.5); IMMATURE GRAN ABSOLUTE AUTO 0.01 K/mm3 (0.00-0.10); IMMATURE GRAN PERCENT AUTO 0 % (0-1); LYMPHOCYTES ABSOLUTE AUTO 0.79 K/mm3 (0.84-5.20); LYMPHOCYTES PERCENT AUTO 11 % (21-46); MONOCYTES ABSOLUTE AUTO 0.42 K/mm3 (0.16-1.47); MONOCYTES PERCENT AUTO 6 % (4-13); Mean Corpuscular HGB 28.4 pg (26.0-34.0); Mean Corpuscular HGB Conc 33.3 g/dL (31.5-36.5); Mean Corpuscular Volume 85 fL (80-100); NEUTROPHILS ABSOLUTE AUTO 5.68 K/mm3 (1.96-9.15); NEUTROPHILS PERCENT AUTO 82 % (41-73); Platelet Count 176 K/mm3 (150-400); RDW Coefficient Variation 13.4 % (11.7-14.2); RDW Standard Deviation 40.6 fL (35.1-46.3); Red Blood Cell Count 4.69 M/mm3 (4.30-5.90); White Blood Cell Count 6.97 K/mm3 (4.00-11.30)
[2022-07-26 13:24] LABS: Source, Urine Clean Catch
[2022-07-26 13:48] LABS: Albumin, Blood 3.8 g/dL (3.4-5.0); Albumin/Globulin Ratio 1.2 (0.8-1.8); Bilirubin, Total 1.3 mg/dL (0.1-1.0); Bun/Creatinine Ratio 16.6 (12.0-20.0); Calcium, Blood 8.9 mg/dL (8.5-10.1); Creatinine, Blood 1.51 mg/dL (0.60-1.20); Globulin, Blood 3.2 g/dL (2.2-4.0); Potassium, Blood 4.1 mmol/L (3.5-5.5)
[2022-07-26 14:58] LABS: Bilirubin, Urine Neg (Neg); Blood, Urine 5+ (Neg); Color, Urine Yellow (P-Yellow); Glucose Qualitative, Urine Neg (Neg); Ketones, Urine Neg (Neg); Leukocyte Esterase, Urine Neg (Neg); Nitrite, Urine Neg (Neg); Protein, Urine 2+ (Neg); Specific Gravity, Urine 1.015 (1.003-1.022); Urobilinogen, Urine NORM (Normal)
[2022-07-26 15:17] LABS: Appearance, Urine Hazy (Clear)
[2022-07-26 15:19] LABS: Red Blood Cells, Urine 50-100 /hpf (0-2); Squamous Epithelial Cells Rare /hpf (Few); White Blood Cells, Urine 0-2 /hpf (0-5)
[2022-07-26 15:20] LABS: Bacteria Rare /hpf
== END 2022-07-26 16:30 | disposition home or self-care (01) ==
LOC: ER 12:39
PROVIDERS: Physician Assistant
DX: R31.9 Hematuria, unspecified (principal); Z79.899 Other long term (current) drug therapy; I50.9 Heart failure, unspecified
CPT/HCPCS: 80053; 81001; 85025; 99283

== ENCOUNTER → 2022-07-27 | Outpatient (CLI) | payer OTHER ==
[~2022-07-27] MED LIST changes: +ATOR80 PO; +CEPH500 PO; +Lisinopril2.5 MG PO; +MYCO250 PO; +PANT40 PO; +TAMS.4ER PO
== END | disposition home or self-care (01) ==
LOC: LAB SHORT 15:55 → LAB 15:55
DX: R31.9 Hematuria, unspecified (principal)
CPT/HCPCS: 87086

== ENCOUNTER 2022-08-19 07:15 | Emergency (ER) | payer OTHER ==
[~2022-08-19] VITALS: Ht 177.8 cm; Wt 83.9 kg
[~2022-08-19 07:15] MED LIST changes: +METO25ER PO; +OXYACE7.5T PO
[2022-08-19 07:29] VITALS: BP 132/90
== END 2022-08-19 08:22 | disposition home or self-care (01) ==
LOC: ER 07:15
DX: Z46.6 Encounter for fitting and adjustment of urinary device (principal); I11.0 Hypertensive heart disease with heart failure; I50.9 Heart failure, unspecified; Z79.899 Other long term (current) drug therapy
CPT/HCPCS: 99282

== ENCOUNTER 2022-10-29 08:17 | Emergency (ER) | payer OTHER ==
[~2022-10-29] VITALS: Ht 177.8 cm; Wt 86.2 kg
[2022-10-29] MEDS ORDERED: METO50ER PO (09:02)
[2022-10-29 09:20] LABS: Source, Urine Clean Catch
[2022-10-29 09:50] LABS: Appearance, Urine Hazy (Clear); Bilirubin, Urine Neg (Neg); Blood, Urine 5+ (Neg); Color, Urine Brown (P-Yellow); Glucose Qualitative, Urine Neg (Neg); Ketones, Urine Neg (Neg); Leukocyte Esterase, Urine 1+ (Neg); Nitrite, Urine Neg (Neg); Protein, Urine 3+ (Neg); Specific Gravity, Urine 1.025 (1.003-1.022); Urobilinogen, Urine 1+ (Normal)
[2022-10-29 09:57] LABS: BASOPHILS ABSOLUTE AUTO 0.02 K/mm3 (0.00-0.23); BASOPHILS PERCENT AUTO 0 % (0-2); EOSINOPHILS ABSOLUTE AUTO 0.03 K/mm3 (0.00-0.68); EOSINOPHILS PERCENT AUTO 1 % (0-6); Hematocrit 37.9 % (37.0-53.0); Hemoglobin 12.5 g/dL (13.5-17.5); IMMATURE GRAN ABSOLUTE AUTO 0.02 K/mm3 (0.00-0.10); IMMATURE GRAN PERCENT AUTO 0 % (0-1); LYMPHOCYTES ABSOLUTE AUTO 0.87 K/mm3 (0.84-5.20); LYMPHOCYTES PERCENT AUTO 15 % (21-46); MONOCYTES ABSOLUTE AUTO 0.41 K/mm3 (0.16-1.47); MONOCYTES PERCENT AUTO 7 % (4-13); Mean Corpuscular HGB 27.2 pg (26.0-34.0); Mean Corpuscular Volume 83 fL (80-100); Mean Platelet Volume 11.2 fL (9.1-12.4); NEUTROPHILS ABSOLUTE AUTO 4.36 K/mm3 (1.96-9.15); NEUTROPHILS PERCENT AUTO 76 % (41-73); Platelet Count 178 K/mm3 (150-400); RDW Coefficient Variation 13.5 % (11.7-14.2); RDW Standard Deviation 39.9 fL (35.1-46.3); Red Blood Cell Count 4.59 M/mm3 (4.30-5.90); White Blood Cell Count 5.71 K/mm3 (4.00-11.30)
[2022-10-29 10:12] LABS: Bun/Creatinine Ratio 16.1 (12.0-20.0); Calcium, Blood 8.8 mg/dL (8.5-10.1); Creatinine, Blood 1.49 mg/dL (0.60-1.20); Potassium, Blood 4.2 mmol/L (3.5-5.5)
[2022-10-29 10:14] LABS: Prothrombin Time Results 10.5 Sec (9.7-11.5)
[2022-10-29 10:29] LABS: Red Blood Cells, Urine 50-100 /hpf (0-2)
[2022-10-29 10:33] LABS: Squamous Epithelial Cells Rare /hpf (Few)
[2022-10-29 10:43] VITALS: BP 130/91
[2022-10-29 10:43] LABS: Amorphous Heavy (0-Heavy); Bacteria Many /hpf
[2022-10-29 10:44] LABS: Calcium Oxalate Crystals Few /hpf
== END 2022-10-29 11:24 | disposition home or self-care (01) ==
LOC: ER 08:17
PROVIDERS: Emergency Medicine
DX: R31.9 Hematuria, unspecified (principal); I13.2 Hypertensive heart and chronic kidney disease with heart failure and with stage 5 chronic kidney disease, or end stage renal disease; I50.9 Heart failure, unspecified; N18.5 Chronic kidney disease, stage 5; Z79.899 Other long term (current) drug therapy
CPT/HCPCS: 36415; 76770; 80048; 81001; 85025; 85610; 85730; 99284-25

== ENCOUNTER 2022-10-31 04:10 | Emergency (ER) | payer OTHER ==
[~2022-10-31] VITALS: Ht 177.8 cm; Wt 81.7 kg
[~2022-10-31 04:10] MED LIST changes: +METO50ER PO
[2022-10-31 05:00] VITALS: BP 151/97
[2022-10-31 05:17] LABS: Source, Urine Foley catheter
[2022-10-31 05:33] LABS: Appearance, Urine Bloody (Clear); Bilirubin, Urine Neg (Neg); Blood, Urine 5+ (Neg); Glucose Qualitative, Urine Neg (Neg); Ketones, Urine Neg (Neg); Leukocyte Esterase, Urine 1+ (Neg); Nitrite, Urine Pos (Neg); Protein, Urine 4+ (Neg); Urobilinogen, Urine 1+ (Normal)
[2022-10-31 05:41] LABS: Color, Urine Brown (P-Yellow)
[2022-10-31 06:00] LABS: Bacteria Many /hpf; Red Blood Cells, Urine TNTC /hpf (0-2); White Blood Cells, Urine 0-2 /hpf (0-5)
[2022-10-31 06:01] LABS: Squamous Epithelial Cells Rare /hpf (Few)
== END 2022-10-31 05:13 | disposition home or self-care (01) ==
LOC: ER 04:10
PROVIDERS: Student in an Organized Health Care Education/Training Program
DX: R33.9 Retention of urine, unspecified (principal); C64.9 Malignant neoplasm of unspecified kidney, except renal pelvis; R31.9 Hematuria, unspecified; I13.0 Hypertensive heart and chronic kidney disease with heart failure and stage 1 through stage 4 chronic kidney disease, or unspecified chronic kidney disease; I50.9 Heart failure, unspecified; N18.30 Chronic kidney disease, stage 3 unspecified; Z79.899 Other long term (current) drug therapy
CPT/HCPCS: 51702; 51798; 81001; 87086; 99283-25

== ENCOUNTER 2025-01-12 17:29 | Emergency (ER) | payer MEDICARE ==
[~2025-01-12] VITALS: Ht 177.8 cm; Wt 87.1 kg
[2025-01-12 17:49] LABS: BASOPHILS ABSOLUTE AUTO 0.05 K/mm3 (0.00-0.23); BASOPHILS PERCENT AUTO 1 % (0-2); EOSINOPHILS ABSOLUTE AUTO 0.05 K/mm3 (0.00-0.68); EOSINOPHILS PERCENT AUTO 1 % (0-6); Hematocrit 45.4 % (37.0-53.0); Hemoglobin 14.6 g/dL (13.5-17.5); IMMATURE GRAN ABSOLUTE AUTO 0.02 K/mm3 (0.00-0.10); IMMATURE GRAN PERCENT AUTO 0 % (0-1); LYMPHOCYTES ABSOLUTE AUTO 1.26 K/mm3 (0.84-5.20); LYMPHOCYTES PERCENT AUTO 18 % (21-46); MONOCYTES ABSOLUTE AUTO 0.46 K/mm3 (0.16-1.47); MONOCYTES PERCENT AUTO 7 % (4-13); Mean Corpuscular HGB Conc 32.2 g/dL (31.5-36.5); Mean Corpuscular Volume 87 fL (80-100); NEUTROPHILS ABSOLUTE AUTO 5.26 K/mm3 (1.96-9.15); NEUTROPHILS PERCENT AUTO 74 % (41-73); NRBC ABSOLUTE 0.00 K/mm3 (0.00-0.02); NRBC Auto 0.0 /100 WBC (0.0-0.2); Platelet Count 206 K/mm3 (150-400); RDW Coefficient Variation 13.2 % (11.7-14.2); RDW Standard Deviation 41.0 fL (35.1-46.3)
[2025-01-12 18:21] LABS: Alanine Aminotransfer (ALT/SGP 22.0 U/L (12-78); Albumin, Blood 4.1 g/dL (3.4-5.0); Albumin/Globulin Ratio 1.1 (0.8-1.8); Anion Gap 11.0 mmol/L (3-11); Aspartate Aminotrans (AST/SGOT 22.0 U/L (12-37); Bilirubin, Total 1.7 mg/dL (0.1-1.0); Blood Urea Nitrogen 22.0 mg/dL (8-24); CO2, Blood 24.0 mmol/L (21-32); Calcium, Blood 9.1 mg/dL (8.5-10.1); Chloride, Blood 105.0 mmol/L (98-108); Creatinine, Blood 1.35 mg/dL (0.60-1.20); Globulin, Blood 3.6 g/dL (2.2-4.0); Glucose, Blood 77.0 mg/dL (70-99); Potassium, Blood 3.8 mmol/L (3.5-5.5); Sodium, Blood 136.0 mmol/L (136-145); Total Protein, Blood 7.7 g/dL (6.4-8.2)
[2025-01-12 19:45] VITALS: BP 166/110
== END 2025-01-12 19:51 | disposition home or self-care (01) ==
LOC: ER 17:29
PROVIDERS: Emergency Medicine
DX: J18.9 Pneumonia, unspecified organism (principal); I10 Essential (primary) hypertension; R06.02 Shortness of breath; J90 Pleural effusion, not elsewhere classified; J98.11 Atelectasis
CPT/HCPCS: 71046; 80053; 83880; 84484; 85025; 93005; 93010; 99285-25